=== PATIENT | female | born 1970 | race American Indian/Alaskan Native ===

== ENCOUNTER 2017-05-12 17:30 | Emergency (ER) | payer OTHER ==
[2017-05-12] MEDS ORDERED: Sodium Chloride 0.9% 10 ML Syringe FLUSH PRN (17:51)
--- NOTE | 2017-05-12 17:54 | EDM.PDOC ---
ED HPI GENERAL MEDICAL PROBLEM - General Chief Complaint: Back Pain or Injury Stated Complaint: BY AMBULANCE Time Seen by Provider: 05/12/17 17:45 Source of Information: Reports: Patient, EMS, EMS Notes Reviewed, RN, RN Notes Reviewed History Limitations: Reports: No Limitations - History of Present Illness INITIAL COMMENTS - FREE TEXT/NARRATIVE: Pt presents to the ER per [facility] with c/o "kidney stone". Patient states she began having pain on and was seen in the clinic at [facility] and was given "some shots". She states the pain has progressively gotten worse, rating the pain 8/10. Patient states she has had kidney stones in the past, with the last one being about 1 year ago. Patient admits to chills recently but unsure if she had a fever. When the patient points to the pain, she points to the low back, to just above the buttocks. Patient admits to N/V, denies diarrhea. Onset: Gradual Onset Date: 05/10/17 Duration: Getting Worse Location: Reports: Back Quality: Reports: Sharp, Stabbing Severity: Moderate Improves with: Reports: None Worsens with: Reports: None Associated Symptoms: Reports: Fever/Chills, Nausea/Vomiting Lower Back Pain Score (Numeric/FACES): 8 - Related Data Allergies Allergy/AdvReac Type Severity Reaction Status Date / Time No Known Allergies Allergy Verified 05/04/16 17:07 Home Meds: Home Meds . [No Known Home Meds] 05/31/14 [History] Past Medical History - Past Health History Medical/Surgical History: Denies Medical/Surgical History Social & Family History - Family History Family Medical History: Noncontributory - Tobacco Use Smoking Status *Q: Current Every Day Smoker Years of Tobacco use: 10 Packs/Tins Daily: 0.1 Used Tobacco, but Quit: No Second Hand Smoke Exposure: Yes - Alcohol Use Days Per Week of Alcohol Use: 1 Number of Drinks Per Day: 1 Total Drinks Per Week: 1 - Recreational Drug Use Recreational Drug Use: No Drug Use in Last 12 Months: No Recreational Drug Type: Reports: Codiene, Oxycodone, Vicodin ED ROS GENERAL - Review of Systems Review Of Systems: ROS reveals no pertinent complaints other than HPI. ED EXAM, RENAL/ - Physical Exam Exam: See Below Exam Limited By: No Limitations General Appearance: Alert, WD/WN, Moderate Distress Eye Exam: Bilateral Eye: EOMI, Normal Inspection, PERRL Ears: Normal External Exam, Hearing Grossly Normal Nose: Normal Inspection Throat/Mouth: Normal Inspection, Normal Voice, No Airway Compromise Head: Atraumatic, Normocephalic Neck: Normal Inspection, Supple, Non-Tender, Full Range of Motion Respiratory/Chest: No Respiratory Distress, Lungs Clear, Normal Breath Sounds, No Accessory Muscle Use, Chest Non-Tender Cardiovascular: Normal Peripheral Pulses, Regular Rate, Rhythm, No Edema, No Gallop, No JVD, No Murmur, No Rub GI/Abdominal: Normal Bowel Sounds, Soft, Non-Tender, No Organomegaly, No Distention, No Abnormal Bruit, No Mass (Female) Exam: Deferred Rectal (Female) Exam: Deferred Back Exam: Normal Inspection, CVA Tenderness (L), CVA Tenderness (R), Decreased Range of Motion, Vertebral Tenderness Extremities: Normal Inspection, Normal Range of Motion, Non-Tender, No Pedal Edema, Normal Capillary Refill Neurological: Alert, Oriented, CN II-XII Intact, Normal Cognition, Normal Reflexes, No Motor/Sensory Deficits Psychiatric: Anxious, Tearful Skin Exam: Warm, Dry, Intact, Normal Color, No Rash Course - Vital Signs Last Recorded V/S: Last Vital Signs Temp 99.8 F 05/12/17 17:42 Pulse 95 05/12/17 17:42 Resp 18 05/12/17 17:42 BP 154/77 H 05/12/17 17:42 Pulse Ox 99 05/12/17 17:42 - Orders/Labs/Meds Orders: Active Orders 24 hr Category Date Time Status Peripheral IV Care [RC] . DIRECTED Care 05/12/17 17:52 Active CULTURE URINE [RM] Stat Lab 05/12/17 18:44 Ordered Sodium Chloride 0.9% [Normal Saline] 1,000 ml Med 05/12/17 18:16 Active IV .BOLUS Sodium Chloride 0.9% [Saline Flush] Med 05/12/17 17:51 Active 10 ml FLUSH ASDIRECTED PRN Peripheral IV Insertion Adult [OM.PC] Stat Oth 05/12/17 17:51 Ordered Medication Orders Sodium Chloride (Normal Saline) 1,000 mls @ 999 mls/hr IV .BOLUS ONE Stop: 05/12/17 19:16 Last Admin: 05/12/17 18:36 Dose: 999 mls/hr Sodium Chloride (Saline Flush) 10 ml FLUSH ASDIRECTED PRN PRN Reason: Keep Vein Open Last Admin: 05/12/17 18:30 Dose: 10 ml Labs: Laboratory Tests 05/12/17 05/12/17 05/12/17 Range/Units 17:52 17:52 17:52 WBC (5.0-10.0) 10^3/uL RBC (4.2-5.4) 10^6/uL Hgb (12.0-16.0) g/dL Hct (37.0-47.0) % MCV (80-100) fL MCH (27.0-34.0) pg MCHC (33.0-35.0) g/dL Plt Count (150-450) 10^3/uL Neut % (Auto) (42.2-75.2) % Lymph % (Auto) (20.5-50.1) % [place] % (Auto) (2-8) % Eos % (Auto) (1.0-3.0) % Baso % (Auto) (0.0-1.0) % Sodium (135-145) mmol/L Potassium (3.6-5.0) mmol/L Chloride (101-111) mmol/L Carbon Dioxide (21.0-31.0) mmol/L Anion Gap BUN (7-18) mg/dL Creatinine (0.6-1.3) mg/dL Est Cr Clr Drug Dosing mL/min Estimated GFR (MDRD) BUN/Creatinine Ratio Glucose (74-105) mg/dL Lactic Acid (0.5-2.2) mmol/L Calcium (8.4-10.2) mg/dl Total Bilirubin (0.2-1.0) mg/dL AST (10-42) IU/L ALT (10-60) IU/L Alkaline Phosphatase (42-121) IU/L Total Protein (6.7-8.2) g/dl Albumin (3.2-5.5) g/dl Globulin Albumin/Globulin Ratio Urine Color Dark yellow (YELLOW) Urine Appearance Cloudy (CLEAR) Urine pH 6.0 (5.0-9.0) Ur Specific [place] 1.020 (1.005-1.030) Urine Protein 100 H (NEGATIVE) Urine Glucose (UA) Negative (NEGATIVE) Urine Ketones Trace H (NEGATIVE) Urine Occult Blood Trace-intact H (NEGATIVE) Urine Nitrite Positive H (NEGATIVE) Urine Bilirubin Small H (NEGATIVE) Urine Urobilinogen 1.0 (0.2-1.0) mg/dL Ur Leukocyte Esterase Moderate H (NEGATIVE) Urine RBC 5-10 H /HPF Urine WBC 30-40 H (0-5/HPF) /HPF Ur Epithelial Cells Few /HPF Amorphous Sediment Few (0/HPF) /HPF Urine Bacteria Many H (0-FEW/HPF) /HPF Urine Mucus Few H /LPF Urine HCG, Qual Negative Urine Opiates Screen Negative (NEGATIVE) Ur Oxycodone Screen Negative (NEGATIVE) Urine Methadone Screen Negative (NEGATIVE) Ur Barbiturates Screen Negative (NEGATIVE) U Tricyclic Antidepress Negative (NEGATIVE) Ur Phencyclidine Scrn Negative (NEGATIVE) Ur Amphetamine Screen Negative (NEGATIVE) U Methamphetamines Scrn Negative (NEGATIVE) Urine MDMA Screen Negative (NEGATIVE) U Benzodiazepines Scrn Negative (NEGATIVE) Urine Cocaine Screen Negative (NEGATIVE) U Marijuana (THC) Screen Positive H (NEGATIVE) Ethyl Alcohol mg/dL 05/12/17 05/12/17 05/12/17 Range/Units 17:55 17:55 17:55 WBC 15.2 H (5.0-10.0) 10^3/uL RBC 4.49 (4.2-5.4) 10^6/uL Hgb 14.1 (12.0-16.0) g/dL Hct 42.5 (37.0-47.0) % MCV 94.7 (80-100) fL MCH 31.4 (27.0-34.0) pg MCHC 33.2 (33.0-35.0) g/dL Plt Count 311 (150-450) 10^3/uL Neut % (Auto) 79.8 H (42.2-75.2) % Lymph % (Auto) 10.0 L (20.5-50.1) % [place] % (Auto) 9.6 H (2-8) % Eos % (Auto) 0.5 L (1.0-3.0) % Baso % (Auto) 0.1 (0.0-1.0) % Sodium 138 (135-145) mmol/L Potassium 3.8 (3.6-5.0) mmol/L Chloride 105 (101-111) mmol/L Carbon Dioxide 27.0 (21.0-31.0) mmol/L Anion Gap 9.8 BUN 8 (7-18) mg/dL Creatinine 0.6 (0.6-1.3) mg/dL Est Cr Clr Drug Dosing 107.67 mL/min Estimated GFR (MDRD) > 60 BUN/Creatinine Ratio 13.33 Glucose 115 H (74-105) mg/dL Lactic Acid 1.3 (0.5-2.2) mmol/L Calcium 8.5 (8.4-10.2) mg/dl Total Bilirubin 0.8 (0.2-1.0) mg/dL AST 35 (10-42) IU/L ALT 27 (10-60) IU/L Alkaline Phosphatase 69 (42-121) IU/L Total Protein 8.1 (6.7-8.2) g/dl Albumin 3.3 (3.2-5.5) g/dl Globulin 4.8 Albumin/Globulin Ratio 0.69 Urine Color (YELLOW) Urine Appearance (CLEAR) Urine pH (5.0-9.0) Ur Specific [place] (1.005-1.030) Urine Protein (NEGATIVE) Urine Glucose (UA) (NEGATIVE) Urine Ketones (NEGATIVE) Urine Occult Blood (NEGATIVE) Urine Nitrite (NEGATIVE) Urine Bilirubin (NEGATIVE) Urine Urobilinogen (0.2-1.0) mg/dL Ur Leukocyte Esterase (NEGATIVE) Urine RBC /HPF Urine WBC (0-5/HPF) /HPF Ur Epithelial Cells /HPF Amorphous Sediment (0/HPF) /HPF Urine Bacteria (0-FEW/HPF) /HPF Urine Mucus /LPF Urine HCG, Qual Urine Opiates Screen (NEGATIVE) Ur Oxycodone Screen (NEGATIVE) Urine Methadone Screen (NEGATIVE) Ur Barbiturates Screen (NEGATIVE) U Tricyclic Antidepress (NEGATIVE) Ur Phencyclidine Scrn (NEGATIVE) Ur Amphetamine Screen (NEGATIVE) U Methamphetamines Scrn (NEGATIVE) Urine MDMA Screen (NEGATIVE) U Benzodiazepines Scrn (NEGATIVE) Urine Cocaine Screen (NEGATIVE) U Marijuana (THC) Screen (NEGATIVE) Ethyl Alcohol < 5 mg/dL Meds: Medications Generic Name Dose Route Start Last Admin Trade Name Freq PRN Reason Stop Dose Admin Sodium Chloride 1,000 mls @ 999 mls/hr 05/12/17 18:16 05/12/17 18:36 Normal Saline IV 05/12/17 19:16 999 mls/hr .BOLUS ONE Administration Sodium Chloride 10 ml 05/12/17 17:51 05/12/17 18:30 Saline Flush FLUSH 10 ml ASDIRECTED PRN Administration Keep Vein Open Discontinued Medications Generic Name Dose Route Start Last Admin Trade Name Freq PRN Reason Stop Dose Admin Ceftriaxone Sodium 1 gm 05/12/17 18:43 05/12/17 18:50 Rocephin IVPUSH 05/12/17 18:44 1 gm ONETIME ONE Administration Ketorolac Tromethamine 30 mg 05/12/17 18:15 05/12/17 18:37 Toradol IVPUSH 05/12/17 18:16 30 mg ONETIME ONE Administration Departure - Departure Time of Disposition: 19:03 Disposition: Home, Self-Care 01 Condition: Fair Clinical Impression: Pyelonephritis - Discharge Information Instructions: Pyelonephritis, Adult, [id number] Forms: ED Department Discharge Additional Instructions: RX: Macrobid Drink Plenty of fluids Follow up with your primary care facility next week - My Orders Last 24 Hours: My Active Orders 05/12/17 17:51 Sodium Chloride 0.9% [Saline Flush] 10 ml FLUSH ASDIRECTED PRN Peripheral IV Insertion Adult [OM.PC] Stat 05/12/17 17:52 Peripheral IV Care [RC] . DIRECTED 05/12/17 18:16 Sodium Chloride 0.9% [Normal Saline] 1,000 ml IV .BOLUS 05/12/17 18:44 CULTURE URINE [RM] Stat - Assessment/Plan Last 24 Hours: My Active Orders 05/12/17 17:51 Sodium Chloride 0.9% [Saline Flush] 10 ml FLUSH ASDIRECTED PRN Peripheral IV Insertion Adult [OM.PC] Stat 05/12/17 17:52 Peripheral IV Care [RC] . DIRECTED 05/12/17 18:16 Sodium Chloride 0.9% [Normal Saline] 1,000 ml IV .BOLUS 05/12/17 18:44 CULTURE URINE [RM] Stat
[2017-05-12] MEDS ORDERED: Ketorolac 30 MG/ML SDV IVPUSH ONE (18:15)
[2017-05-12] MEDS ORDERED: Sodium Chloride 0.9% 1,000 ML IV ONE (18:16)
[2017-05-12 18:22] LABS: CHLORIDE,CL 105 mmol/L (101-111); SODIUM,NA 138 mmol/L (135-145)
[2017-05-12] MEDS ORDERED: cefTRIAXone 1 GM Vial IVPUSH ONE (18:43)
[2017-05-12] MEDS ORDERED: Acetaminophen 500 MG Tab PO ONE (19:42)
[2017-05-12 19:54] VITALS: BP 125/44
== END 2017-05-12 20:01 | disposition home or self-care (01) ==
LOC: DL.ED 17:30
DX: N12 Tubulo-interstitial nephritis, not specified as acute or chronic (principal); F17.210 Nicotine dependence, cigarettes, uncomplicated
CPT/HCPCS: 36415; 80053; 80305; 81001; 81025; 83605; 85025; 87086; 96365; 96375; 99283; A9270; G0480; J0696; J1885; J7030; J7050; 87088; 87186

== ENCOUNTER 2017-05-13 13:13 | Emergency (ER) | payer OTHER ==
[2017-05-13] MEDS ORDERED: Sodium Chloride 0.9% 1,000 ML IV ONE ×2 (13:42→14:50)
[2017-05-13] MEDS ORDERED: Ondansetron 4 MG/2 ML SDV IV ONE (13:42)
[2017-05-13] MEDS ORDERED: HYDROmorphone 1 MG/ML Syringe IVPUSH ONE ×2 (13:42→15:14)
[2017-05-13] MEDS ORDERED: Acetaminophen 500 MG Tab PO ONE (13:45)
[2017-05-13] MEDS ORDERED: Iopamidol 612 MG/ML 100 ML Bottle IVPUSH ONE (13:53)
[2017-05-13 14:04] LABS: CHLORIDE,CL 105 mmol/L (101-111); SODIUM,NA 134 mmol/L (135-145)
[2017-05-13] MEDS ORDERED: Piperacillin/Tazobactam 3.375 GM in Sodium Chloride 0.9% 100 ML IV ONE (14:55)
[2017-05-13 15:12] VITALS: BP 104/65
--- NOTE | 2017-05-14 14:04 | EDM.PDOC ---
Scribed by Adia Bob 05/13/17 1426 for Carly Willett NP ED HPI GENERAL MEDICAL PROBLEM - General Chief Complaint: Abdominal Pain Stated Complaint: BY AMBULANCE Time Seen by Provider: 05/13/17 13:40 Source of Information: Reports: Patient, EMS, EMS Notes Reviewed, RN, RN Notes Reviewed History Limitations: Reports: No Limitations - History of Present Illness INITIAL COMMENTS - FREE TEXT/NARRATIVE: Patient presents to ER with complaint of right lower quadrant pain. Patient was seen yesterday in the ER with back/flank pain. Pharmacy is not open until noon today, so patient was unable to get script filled. Patient admits to fever and chills. No nausea, vomiting or diarrhea. Duration: Getting Worse Location: Reports: Abdomen Quality: Reports: Ache Severity: Severe Improves with: Reports: None Worsens with: Reports: None Associated Symptoms: Reports: No Other Symptoms - Related Data Allergies Allergy/AdvReac Type Severity Reaction Status Date / Time No Known Allergies Allergy Verified 05/13/17 13:21 Home Meds: Home Meds . 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: Musculoskeletal History: Reports: Fracture Neurological History: Reports: None Psychiatric History: Reports: None Endocrine/Metabolic History: Reports: None Hematologic History: Reports: None Immunologic History: Reports: None Oncologic (Cancer) History: Reports: None Dermatologic History: Reports: None - Infectious Disease History Infectious Disease History: Reports: None - Past Surgical History Female Surgical History: Reports: Section Social & Family History - Family History Family Medical History: Noncontributory - Tobacco Use Smoking Status *Q: Current Every Day Smoker Years of Tobacco use: 10 Packs/Tins Daily: 0.1 Used Tobacco, but Quit: No Second Hand Smoke Exposure: Yes - Caffeine Use Caffeine Use: Reports: None - Alcohol Use Days Per Week of Alcohol Use: 1 Number of Drinks Per Day: 1 Total Drinks Per Week: 1 - Recreational Drug Use Recreational Drug Use: No Drug Use in Last 12 Months: No Recreational Drug Type: Reports: Codiene, Oxycodone, Vicodin ED ROS GENERAL - Review of Systems Review Of Systems: ROS reveals no pertinent complaints other than HPI. ED EXAM, GI/ABD - Physical Exam Exam: See Below Exam Limited By: No Limitations General Appearance: Alert, WD/WN, No Apparent Distress Eyes: Bilateral: Normal Appearance Ears: Normal External Exam, Normal Canal, Hearing Grossly Normal, Normal TMs Nose: Normal Inspection, Normal Mucosa, No Blood Throat/Mouth: Normal Inspection Head: Atraumatic, Normocephalic Neck: Normal Inspection, Supple, Non-Tender, Full Range of Motion Respiratory/Chest: No Respiratory Distress, Lungs Clear, Normal Breath Sounds, No Accessory Muscle Use, Chest Non-Tender Cardiovascular: Normal Peripheral Pulses, Regular Rate, Rhythm, No Edema, No Gallop, No JVD, No Murmur, No Rub GI/Abdominal Exam: Soft, Tender (Female) Exam: Deferred Rectal (Female) Exam: Deferred Back Exam: Normal Inspection Extremities: Normal Inspection, Normal Range of Motion, Non-Tender, Normal Capillary Refill, No Pedal Edema Neurological: Alert, Oriented, CN II-XII Intact, Normal Cognition, Normal Gait, Normal Reflexes, No Motor/Sensory Deficits Psychiatric: Normal Affect, Normal Mood Skin Exam: Other (hot) Lymphatic: No Adenopathy Course - Vital Signs Last Recorded V/S: Last Vital Signs Temp 99 F 05/13/17 15:11 Pulse 111 H 05/13/17 15:11 Resp 16 05/13/17 15:11 BP 104/65 05/13/17 15:11 Pulse Ox 98 05/13/17 15:11 - Orders/Labs/Meds Orders: Active Orders 24 hr Category Date Time Status CULTURE BLOOD [BC] Stat Lab 05/13/17 14:17 Received CULTURE BLOOD [BC] Stat Lab 05/13/17 14:17 Received Blood Culture x2 Reflex Set [OM.PC] Stat Oth 05/13/17 13:53 Ordered Labs: Laboratory Tests 05/13/17 05/13/17 05/13/17 Range/Units 13:35 13:35 13:35 WBC 28.5 H* (5.0-10.0) 10^3/uL RBC 4.29 (4.2-5.4) 10^6/uL Hgb 13.4 (12.0-16.0) g/dL Hct 40.1 (37.0-47.0) % MCV 93.5 (80-100) fL MCH 31.2 (27.0-34.0) pg MCHC 33.4 (33.0-35.0) g/dL Plt Count 323 (150-450) 10^3/uL Neut % (Auto) 84.9 H (42.2-75.2) % Lymph % (Auto) 7.3 L (20.5-50.1) % [place] % (Auto) 7.6 (2-8) % Eos % (Auto) 0.1 L (1.0-3.0) % Baso % (Auto) 0.1 (0.0-1.0) % ESR (0-20) mm/hr Sodium 134 L (135-145) mmol/L Potassium 3.5 L (3.6-5.0) mmol/L Chloride 105 (101-111) mmol/L Carbon Dioxide 20.0 L (21.0-31.0) mmol/L Anion Gap 12.5 BUN 7 (7-18) mg/dL Creatinine 0.5 L (0.6-1.3) mg/dL Est Cr Clr Drug Dosing 129.20 mL/min Estimated GFR (MDRD) > 60 BUN/Creatinine Ratio 14.00 Glucose 114 H (74-105) mg/dL Lactic Acid (0.5-2.2) mmol/L Calcium 8.4 (8.4-10.2) mg/dl Total Bilirubin 1.0 (0.2-1.0) mg/dL AST 32 (10-42) IU/L ALT 24 (10-60) IU/L Alkaline Phosphatase 67 (42-121) IU/L C-Reactive Protein (0.0-1.3) mg/dL Total Protein 7.5 (6.7-8.2) g/dl Albumin 2.9 L (3.2-5.5) g/dl Globulin 4.6 Albumin/Globulin Ratio 0.63 Amylase (28-100) U/L Lipase (22-51) U/L Ethyl Alcohol < 5 mg/dL 05/13/17 05/13/17 05/13/17 Range/Units 13:35 13:35 13:35 WBC (5.0-10.0) 10^3/uL RBC (4.2-5.4) 10^6/uL Hgb (12.0-16.0) g/dL Hct (37.0-47.0) % MCV (80-100) fL MCH (27.0-34.0) pg MCHC (33.0-35.0) g/dL Plt Count (150-450) 10^3/uL Neut % (Auto) (42.2-75.2) % Lymph % (Auto) (20.5-50.1) % [place] % (Auto) (2-8) % Eos % (Auto) (1.0-3.0) % Baso % (Auto) (0.0-1.0) % ESR 33 H (0-20) mm/hr Sodium (135-145) mmol/L Potassium (3.6-5.0) mmol/L Chloride (101-111) mmol/L Carbon Dioxide (21.0-31.0) mmol/L Anion Gap BUN (7-18) mg/dL Creatinine (0.6-1.3) mg/dL Est Cr Clr Drug Dosing mL/min Estimated GFR (MDRD) BUN/Creatinine Ratio Glucose (74-105) mg/dL Lactic Acid (0.5-2.2) mmol/L Calcium (8.4-10.2) mg/dl Total Bilirubin (0.2-1.0) mg/dL AST (10-42) IU/L ALT (10-60) IU/L Alkaline Phosphatase (42-121) IU/L C-Reactive Protein 9.9 H (0.0-1.3) mg/dL Total Protein (6.7-8.2) g/dl Albumin (3.2-5.5) g/dl Globulin Albumin/Globulin Ratio Amylase 40 (28-100) U/L Lipase 14 L (22-51) U/L Ethyl Alcohol mg/dL 05/13/17 Range/Units 14:17 WBC (5.0-10.0) 10^3/uL RBC (4.2-5.4) 10^6/uL Hgb (12.0-16.0) g/dL Hct (37.0-47.0) % MCV (80-100) fL MCH (27.0-34.0) pg MCHC (33.0-35.0) g/dL Plt Count (150-450) 10^3/uL Neut % (Auto) (42.2-75.2) % Lymph % (Auto) (20.5-50.1) % [place] % (Auto) (2-8) % Eos % (Auto) (1.0-3.0) % Baso % (Auto) (0.0-1.0) % ESR (0-20) mm/hr Sodium (135-145) mmol/L Potassium (3.6-5.0) mmol/L Chloride (101-111) mmol/L Carbon Dioxide (21.0-31.0) mmol/L Anion Gap BUN (7-18) mg/dL Creatinine (0.6-1.3) mg/dL Est Cr Clr Drug Dosing mL/min Estimated GFR (MDRD) BUN/Creatinine Ratio Glucose (74-105) mg/dL Lactic Acid 2.4 H (0.5-2.2) mmol/L Calcium (8.4-10.2) mg/dl Total Bilirubin (0.2-1.0) mg/dL AST (10-42) IU/L ALT (10-60) IU/L Alkaline Phosphatase (42-121) IU/L C-Reactive Protein (0.0-1.3) mg/dL Total Protein (6.7-8.2) g/dl Albumin (3.2-5.5) g/dl Globulin Albumin/Globulin Ratio Amylase (28-100) U/L Lipase (22-51) U/L Ethyl Alcohol mg/dL Meds: Medications Discontinued Medications Generic Name Dose Route Start Last Admin Trade Name Wanda PRN Reason Stop Dose Admin Acetaminophen 1,000 mg 05/13/17 13:45 05/13/17 13:56 Tylenol Extra Strength PO 05/13/17 13:46 1,000 mg ONETIME ONE Administration Hydromorphone HCl 1 mg 05/13/17 13:42 05/13/17 13:57 Dilaudid IVPUSH 05/13/17 13:43 1 mg ONETIME ONE Administration Hydromorphone HCl 1 mg 05/13/17 15:14 05/13/17 15:22 Dilaudid IVPUSH 05/13/17 15:15 1 mg ONETIME ONE Administration Sodium Chloride 1,000 mls @ 999 mls/hr 05/13/17 13:42 05/13/17 13:57 Normal Saline IV 05/13/17 14:42 999 mls/hr .BOLUS ONE Administration Sodium Chloride 1,000 mls @ 999 mls/hr 05/13/17 14:50 05/13/17 15:40 Normal Saline IV 05/13/17 15:50 999 mls/hr .BOLUS ONE Administration Piperacillin Sod/Tazobactam 100 mls @ 200 mls/hr 05/13/17 14:55 05/13/17 15: 10 Sod 3.375 gm/ Sodium Chloride IV 05/13/17 15:24 200 mls/hr ONETIME ONE Administration Iopamidol 100 ml 05/13/17 13:53 05/13/17 14:24 Isovue-300 (61%) IVPUSH 05/13/17 13:54 100 ml ONETIME ONE Administration Ondansetron HCl 4 mg 05/13/17 13:42 05/13/17 13:56 Zofran IV 05/13/17 13:43 4 mg ONETIME ONE Administration - Radiology Interpretation Free Text/Narrative:: CT abdomen and pelvis: Numerous gallstones are present without evidence of gallbladder wall thickening or pericholecystic fluid. There is perirenal fatty stranding of both kidneys, right greater than left. Wedge-shaped areas of diminished attenuation are seen in bilateral renal cortex suggesting possible nephronia. See rad report. - Re-Assessments/Exams Free Text/Narrative Re-Assessment/Exam: 05/13/[address] Arauz from Rad called to report an urgent finding on the CT abdomen/ Pelvis for the patient. Dr. Arauz states a possible bilateral nephronia or Renal abscess. Report relayed to Dr. Robins Departure - Departure Time of Disposition: 15:07 Disposition: Home, Self-Care 01 Condition: Fair, Serious Clinical Impression: Pyelonephritis, Renal abscess - Discharge Information Forms: ED Department Discharge, Interfacility Transfer EMTALA - My Orders Last 24 Hours: My Active Orders 05/13/17 13:53 Blood Culture x2 Reflex Set [OM.PC] Stat 05/13/17 14:17 CULTURE BLOOD [BC] Stat CULTURE BLOOD [BC] Stat - Assessment/Plan Last 24 Hours: My Active Orders 05/13/17 13:53 Blood Culture x2 Reflex Set [OM.PC] Stat 05/13/17 14:17 CULTURE BLOOD [BC] Stat CULTURE BLOOD [BC] Stat I have read and agree with the documentation that has been completed regarding this visit. By signing this record, I attest that the documentation was completed in my physical presence and is an accurate record of the encounter.
== END 2017-05-13 15:52 | disposition home or self-care (01) ==
LOC: DL.ED 13:13
DX: N12 Tubulo-interstitial nephritis, not specified as acute or chronic (principal); N15.1 Renal and perinephric abscess; F17.210 Nicotine dependence, cigarettes, uncomplicated; Z87.442 Personal history of urinary calculi
CPT/HCPCS: 36415; 74177; 80053; 82150; 83605; 83690; 85025; 85651; 86140; 87040; 96361; 96365; 96375; 96376; 99285; A9270; G0480; J1170; J2405; J2543; J7030; J7050; Q9967; 99284

== ENCOUNTER 2017-12-12 04:08 | Emergency (ER) | payer MEDICAID, OTHER ==
[2017-12-12] MEDS ORDERED: Ondansetron 4 MG/2 ML SDV IV ONE ×2 (04:38→08:48)
[2017-12-12] MEDS ORDERED: fentaNYL 100 MCG/2 ML SDV IVPUSH ONE ×2 (04:47→06:32)
[2017-12-12] MEDS ORDERED: Sodium Chloride 0.9% 1,000 ML IV ONE (04:48)
--- NOTE | 2017-12-12 04:50 | EDM.PDOC ---
<Floresita Mendoza - Last Filed: 12/12/17 07:14> ED HPI GENERAL MEDICAL PROBLEM - General Chief Complaint: Abdominal Pain Stated Complaint: IN BY AMBULANCE Time Seen by Provider: 12/12/17 04:30 Source of Information: Reports: Patient History Limitations: Reports: No Limitations - History of Present Illness INITIAL COMMENTS - FREE TEXT/NARRATIVE: C/O epigastric and RUQ pain starting around 430today. Vomited x 4 2 loose diarrhea stools. Chills, no Known fever. Unable to keep anything down tonight. Lower Abdominal Pain Score (Numeric/FACES): 9 - Related Data Allergies Allergy/AdvReac Type Severity Reaction Status Date / Time No Known Allergies Allergy Verified 12/12/17 04:26 Home Meds: Home Meds . 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 [employer] History: Reports: Musculoskeletal History: Reports: Fracture Neurological History: Reports: None Psychiatric History: Reports: None Endocrine/Metabolic History: Reports: None Hematologic History: Reports: None Immunologic History: Reports: None Oncologic (Cancer) History: Reports: None Dermatologic History: Reports: None - Infectious Disease History Infectious Disease History: Reports: None - Past Surgical History Female Surgical History: Reports: Section Social & Family History - Family History Family Medical History: Noncontributory - Tobacco Use Smoking Status *Q: Light Tobacco Smoker Years of Tobacco use: 20 Packs/Tins Daily: 0.1 - Caffeine Use Caffeine Use: Reports: None - Recreational Drug Use Recreational Drug Use: No ED ROS GENERAL - Review of Systems Review Of Systems: See Below Constitutional: Reports: Chills HEENT: Reports: No Symptoms Respiratory: Reports: No Symptoms Cardiovascular: Reports: No Symptoms GI/Abdominal: Reports: Abdominal Pain, Nausea, Vomiting. Denies: Decreased Appetite : Reports: No Symptoms Musculoskeletal: Reports: No Symptoms, Neck Pain Skin: Reports: No Symptoms Neurological: Reports: No Symptoms Course - Vital Signs Last Recorded V/S: Last Vital Signs Temp 36.3 C 12/12/17 08:58 Pulse 59 L 12/12/17 08:58 Resp 16 12/12/17 08:58 BP 132/71 12/12/17 08:58 Pulse Ox 99 12/12/17 08:58 - Orders/Labs/Meds Orders: Active Orders 24 hr Category Date Time Status CULTURE URINE [RM] Stat Lab 12/12/17 Ordered Labs: Laboratory Tests 12/12/17 12/12/17 12/12/17 Range/Units 04:36 04:36 04:36 WBC 8.4 (5.0-10.0) 10^3/uL RBC 4.15 L (4.2-5.4) 10^6/uL Hgb 12.8 (12.0-16.0) g/dL Hct 39.8 (37.0-47.0) % MCV 95.9 (80-100) fL MCH 30.8 (27.0-34.0) pg MCHC 32.2 L (33.0-35.0) g/dL Plt Count 341 (150-450) 10^3/uL Neut % (Auto) 68.4 (42.2-75.2) % Lymph % (Auto) 21.7 (20.5-50.1) % [place] % (Auto) 8.6 H (2-8) % Eos % (Auto) 1.2 (1.0-3.0) % Baso % (Auto) 0.1 (0.0-1.0) % Sodium 136 (135-145) mmol/L Potassium 3.6 (3.6-5.0) mmol/L Chloride 104 (101-111) mmol/L Carbon Dioxide 25.0 (21.0-31.0) mmol/L Anion Gap 10.6 BUN 13 (7-18) mg/dL Creatinine 0.5 L (0.6-1.3) mg/dL Est Cr Clr Drug Dosing 122.69 mL/min Estimated GFR (MDRD) > 60 BUN/Creatinine Ratio 26.00 Glucose 123 H (74-105) mg/dL Calcium 8.4 (8.4-10.2) mg/dl Total Bilirubin 0.5 (0.2-1.0) mg/dL AST 49 H (10-42) IU/L ALT 30 (10-60) IU/L Alkaline Phosphatase 79 (42-121) IU/L C-Reactive Protein < 0.5 (0.0-1.3) mg/dL Total Protein 7.9 (6.7-8.2) g/dl Albumin 3.3 (3.2-5.5) g/dl Globulin 4.6 Albumin/Globulin Ratio 0.72 Amylase 61 (28-100) U/L Lipase 26 (22-51) U/L HCG, Qual Urine Color (YELLOW) Urine Appearance (CLEAR) Urine pH (5.0-9.0) Ur Specific [place] (1.005-1.030) Urine Protein (NEGATIVE) Urine Glucose (UA) (NEGATIVE) Urine Ketones (NEGATIVE) Urine Occult Blood (NEGATIVE) Urine Nitrite (NEGATIVE) Urine Bilirubin (NEGATIVE) Urine Urobilinogen (0.2-1.0) mg/dL Ur Leukocyte Esterase (NEGATIVE) Urine RBC /HPF Urine WBC (0-5/HPF) /HPF Ur Epithelial Cells /HPF Urine Bacteria (0-FEW/HPF) /HPF Urinalysis Comment 12/12/17 12/12/17 Range/Units 04:49 05:58 WBC (5.0-10.0) 10^3/uL RBC (4.2-5.4) 10^6/uL Hgb (12.0-16.0) g/dL Hct (37.0-47.0) % MCV (80-100) fL MCH (27.0-34.0) pg MCHC (33.0-35.0) g/dL Plt Count (150-450) 10^3/uL Neut % (Auto) (42.2-75.2) % Lymph % (Auto) (20.5-50.1) % [place] % (Auto) (2-8) % Eos % (Auto) (1.0-3.0) % Baso % (Auto) (0.0-1.0) % Sodium (135-145) mmol/L Potassium (3.6-5.0) mmol/L Chloride (101-111) mmol/L Carbon Dioxide (21.0-31.0) mmol/L Anion Gap BUN (7-18) mg/dL Creatinine (0.6-1.3) mg/dL Est Cr Clr Drug Dosing mL/min Estimated GFR (MDRD) BUN/Creatinine Ratio Glucose (74-105) mg/dL Calcium (8.4-10.2) mg/dl Total Bilirubin (0.2-1.0) mg/dL AST (10-42) IU/L ALT (10-60) IU/L Alkaline Phosphatase (42-121) IU/L C-Reactive Protein (0.0-1.3) mg/dL Total Protein (6.7-8.2) g/dl Albumin (3.2-5.5) g/dl Globulin Albumin/Globulin Ratio Amylase (28-100) U/L Lipase (22-51) U/L HCG, Qual Negative Urine Color Yellow (YELLOW) Urine Appearance Cloudy (CLEAR) Urine pH 7.5 (5.0-9.0) Ur Specific [place] 1.020 (1.005-1.030) Urine Protein Negative (NEGATIVE) Urine Glucose (UA) Negative (NEGATIVE) Urine Ketones 40 H (NEGATIVE) Urine Occult Blood Negative (NEGATIVE) Urine Nitrite Positive H (NEGATIVE) Urine Bilirubin Negative (NEGATIVE) Urine Urobilinogen 0.2 (0.2-1.0) mg/dL Ur Leukocyte Esterase Negative (NEGATIVE) Urine RBC 0-5 /HPF Urine WBC 0-5 (0-5/HPF) /HPF Ur Epithelial Cells Moderate H /HPF Urine Bacteria Many H (0-FEW/HPF) /HPF Urinalysis Comment Meds: Medications Discontinued Medications Generic Name Dose Route Start Last Admin Trade Name Freq PRN Reason Stop Dose Admin Famotidine 20 mg 12/12/17 06:22 12/12/17 06:39 Pepcid IVPUSH 12/12/17 06:23 20 mg ONETIME ONE Administration Fentanyl 50 mcg 12/12/17 04:47 12/12/17 04:53 Sublimaze IVPUSH 12/12/17 04:48 50 mcg ONETIME ONE Administration Fentanyl 50 mcg 12/12/17 06:32 12/12/17 06:40 Sublimaze IVPUSH 12/12/17 06:33 50 mcg ONETIME ONE Administration Hydromorphone HCl 0.5 mg 12/12/17 08:48 12/12/17 08:55 Dilaudid IVPUSH 12/12/17 08:49 0.5 mg ONETIME ONE Administration Sodium Chloride 1,000 mls @ 999 mls/hr 12/12/17 04:48 12/12/17 04:51 Normal Saline IV 12/12/17 05:48 999 mls/hr .BOLUS ONE Administration Iopamidol 100 ml 12/12/17 06:33 Isovue-300 (61%) IVPUSH 12/12/17 06:34 ONETIME ONE Ondansetron HCl 4 mg 12/12/17 04:38 12/12/17 04:44 Zofran IV 12/12/17 04:39 4 mg ONETIME ONE Administration Ondansetron HCl 4 mg 12/12/17 08:48 12/12/17 08:56 Zofran IV 12/12/17 08:49 4 mg ONETIME ONE Administration Departure - Departure Disposition: DC/Tfer to [facility] 02 Clinical Impression: Cholelithiasis and acute cholecystitis with obstruction UTI (urinary tract infection) Qualifiers: Urinary tract infection type: site unspecified Hematuria presence: without hematuria Qualified Code(s): N39.0 - Urinary tract infection, site not specified - Discharge Information *PRESCRIPTION DRUG MONITORING PROGRAM REVIEWED*: Not Applicable Forms: Interfacility Transfer EMTALA Care Plan Goals: Discussed the examination, history, lab and CT results with [facility] in [place]. Critical access hospital contacted Dr. Peraza (Surgery) who accepted the patient for continued evaluation and treatment. The patient will be transported by [facility]. <Kirill Almazan - Last Filed: 12/12/17 09:04> ED EXAM, GI/ABD - Physical Exam Exam: See Below Exam Limited By: No Limitations General Appearance: Alert, WD/WN, Moderate Distress Eyes: Bilateral: Normal Appearance, EOMI Ears: Normal External Exam, Normal Canal, Hearing Grossly Normal, Normal TMs Nose: Normal Inspection, Normal Mucosa, No Blood Throat/Mouth: Normal Inspection, Normal Lips, Normal Teeth, Normal Gums, Normal Oropharynx, Normal Voice, No Airway Compromise Head: Atraumatic, Normocephalic Neck: Normal Inspection, Supple, Non-Tender, Full Range of Motion Respiratory/Chest: No Respiratory Distress, Lungs Clear, Normal Breath Sounds, No Accessory Muscle Use, Chest Non-Tender Cardiovascular: Normal Peripheral Pulses, Regular Rate, Rhythm, No Edema, No Gallop, No JVD, No Murmur, No Rub GI/Abdominal Exam: Guarding, Tender (RUQ), Other (obese) (Female) Exam: Deferred Rectal (Female) Exam: Deferred Back Exam: Normal Inspection, Full Range of Motion, NT Extremities: Normal Inspection, Normal Range of Motion, Non-Tender, Normal Capillary Refill, No Pedal Edema Neurological: Alert, Oriented, CN II-XII Intact, Normal Cognition, Normal Gait, Normal Reflexes, No Motor/Sensory Deficits Psychiatric: Normal Affect, Normal Mood Skin Exam: Warm, Dry, Intact, Normal Color, No Rash Lymphatic: No Adenopathy Departure - Departure Time of Disposition: 09:01 Condition: Fair - Discharge Information *PRESCRIPTION DRUG MONITORING PROGRAM REVIEWED*: Not Applicable *COPY OF PRESCRIPTION DRUG MONITORING REPORT IN PATIENT RICH: Not Applicable
[2017-12-12 05:24] LABS: ANION GAP 10.6; CHLORIDE,CL 104 mmol/L (101-111); SODIUM,NA 136 mmol/L (135-145)
[2017-12-12] MEDS ORDERED: Famotidine 20 MG/2 ML SDV IVPUSH ONE (06:22)
[2017-12-12] MEDS ORDERED: Iopamidol 612 MG/ML 100 ML Bottle IVPUSH ONE (06:33)
--- NOTE | 2017-12-12 08:37 | CT ---
Clinical history: 47-year-old obese female smoker with right-sided RUQ abdominal pain, nausea, vomiti ng but normal WBC who was reported on [address] exam for right lower quadrant pain to have "numerous gallstones, perirenal stranding both kidneys, and possible nephronia". Reevaluate please Scan technique: Volume acquisition of data from the abdomen and pelvis obtained without oral contrast but during/after intravenous administration 100 cc nonionic Isovue contrast (3 cc/s via injector) wh ile lying supine on the Siemens multi slice CT scanner [facility]. All data archived in the PACS system for storage, reformatting axial/sagittal/coronal planes and [place] dy. Interpretation: Abnormal. 1. Multiple small discretely calcified intraluminal gallstones, one of which appears to be a "lodged" in the cystic duct of the distended gallbladder RUQ. Uniformly thin gallbladder wall and no pericyst ic fluid. 2. Normal hepatic size anatomic configuration and homogeneous density. No abnormal dilatation intra/e xtrahepatic biliary ducts. 3. Irregularity cortex both kidneys which appear to be normal size anatomic configuration. No sign of discrete renal cortical mass lesion, nephrolithiasis or obstructive uropathy. Midline urinary bladde r unremarkable and normal uterus. 4. Multilevel disc disease around the thoracolumbar juncture and involving L5-S1 level (associated hy pertrophic spondylosis). Normal caliber aortoiliac vessels. Cardiac silhouette unremarkable. Lung bas es clear. 5. Stomach, spleen, pancreas and adrenal glands anatomically correct. 7. No diverticulosis, obstipation, inflammatory "dirty" peritoneal fat, abdominal mass, retroperitone al lymphadenopathy, signs of mechanical bowel obstruction, ascites or free intraperitoneal air. CONCLUSION: Diseased gallbladder. Abnormalities spine.
[2017-12-12] MEDS ORDERED: HYDROmorphone 0.5 MG/0.5 ML Syringe IVPUSH ONE (08:48)
[2017-12-12 09:00] VITALS: BP 132/71
== END 2017-12-12 09:34 ==
LOC: DL.ED 04:08
DX: K80.01 Calculus of gallbladder with acute cholecystitis with obstruction (principal); N39.0 Urinary tract infection, site not specified; F17.210 Nicotine dependence, cigarettes, uncomplicated
CPT/HCPCS: 36415; 74177; 80053; 81001; 82150; 83690; 84703; 85025; 86140; 87086; 96361; 96374; 96375; 96376; 99285; J1170; J2405; J3010; J3490; J7030; Q9967; 87088; 87186

== ENCOUNTER 2022-04-10 19:16 | Emergency (ER) | payer MEDICAID ==
[2022-04-10] MEDS ORDERED: Ondansetron 4 MG Tab.DIS PO ONE (19:17)
[2022-04-10] MEDS ORDERED: Ondansetron 4 MG/2 ML SDV IVPUSH ONE (19:39)
[2022-04-10 19:50] LABS: AMPHETAMINES,URINE NEGATIVE (NEGATIVE); BARBITURATES,URINE NEGATIVE (NEGATIVE); BENZODIAZEPINE,URINE NEGATIVE (NEGATIVE); MDMA (ECSTASY), URINE NEGATIVE (NEGATIVE); METHADONE,URINE NEGATIVE (NEGATIVE); METHAMPHETAMINES,URINE POSITIVE (NEGATIVE); OPIATES,URINE NEGATIVE (NEGATIVE); OXYCODONE,URINE NEGATIVE (NEGATIVE); PHENCYCLIDINE,URINE NEGATIVE (NEGATIVE); TCA,URINE NEGATIVE (NEGATIVE)
[2022-04-10] MEDS ORDERED: Sodium Chloride 0.9% 10 ML Syringe FLUSH SCH (20:00)
[2022-04-10 20:10] LABS: ANION GAP 9.7 mEq/L (7-13); CHLORIDE,CL 110 mmol/L (98-107); SODIUM,NA 139 mmol/L (136-145)
[2022-04-10 20:11] LABS: ESTIMATED GFR 108 mL/min (>=60)
[2022-04-10 20:25] LABS: CORONAVIRUS COVID-19 NAA NEGATIVE (NEGATIVE); RESPIRATORY SYNCYTIAL VIR NAA NEGATIVE (NEGATIVE)
[2022-04-10] MEDS ORDERED: Iopamidol 612 MG/ML 100 ML Bottle IVPUSH ONE (20:35)
[2022-04-10 22:32] VITALS: BP 117/61; PULSE 102
[2022-04-10] MEDS ORDERED: Ondansetron 4 MG Tab.DIS ONE (22:41)
== END 2022-04-10 22:51 | disposition home or self-care (01) ==
LOC: DL.ED 19:16
DX: K72.90 Hepatic failure, unspecified without coma (principal); R18.8 Other ascites; R74.01 Elevation of levels of liver transaminase levels; M87.052 Idiopathic aseptic necrosis of left femur; R91.8 Other nonspecific abnormal finding of lung field; R19.7 Diarrhea, unspecified; B34.9 Viral infection, unspecified; Z90.49 Acquired absence of other specified parts of digestive tract; Z20.822 Contact with and (suspected) exposure to COVID-19
CPT/HCPCS: 0241U; 36415; 74177; 80053; 80305; 80307; 81003; 82150; 83605; 83690; 83735; 84703; 85025; 86140; 96374; 99284; A9270; J2405; J3490; Q9967

== ENCOUNTER 2022-11-10 21:12 | Emergency (ER) | payer MEDICAID ==
[2022-11-10] MEDS ORDERED: diphenhydrAMINE 50 MG/ML SDV IVPUSH ONE (21:15)
[2022-11-10] MEDS ORDERED: HYDROmorphone 0.5 MG/0.5 ML Syringe IVPUSH ONE (21:22)
[2022-11-10] MEDS ORDERED: Ondansetron 4 MG/2 ML SDV IVPUSH ONE (21:22)
[2022-11-10 21:30] LABS: BASOPHILS PERCENT AUTO 0.3 % (0.0-1.0); EOSINOPHILS PERCENT AUTO 1.2 % (1.0-3.0); HEMATOCRIT 31.1 % (37.0-47.0); HEMOGLOBIN 10.8 g/dL (12.0-16.0); LYMPHOCYTES PERCENT AUTO 24.3 % (20.5-50.1); MEAN CORPUSCULAR HEMOGLOBIN 36.1 pg (27.0-34.0); MEAN CORPUSCULAR HGB CONC 34.7 g/dL (33.0-35.0); MONOCYTES PERCENT AUTO 10.1 % (2-8); NEUTROPHILS PERCENT AUTO 64.1 % (42.2-75.2); PLATELET COUNT,PLT 140 10^3/uL (150-450); RED BLOOD CELL COUNT 2.99 10^6/uL (4.2-5.4); WHITE BLOOD CELL COUNT,WBC 6.5 10^3/uL (5.0-10.0)
[2022-11-10 21:44] VITALS: BP 106/86; PULSE 100
[2022-11-10 21:54] LABS: LACTIC ACID 1.9 mmol/L (0.4-2.0)
[2022-11-10 21:59] LABS: INR 1.2 (0.9-1.2); PROTHROMBIN TIME 12.1 SEC (9.0-12.0)
[2022-11-10 22:01] LABS: ALANINE AMINOTRANSFERASE,ALT 92 U/L (14-59); ALBUMIN 2.2 g/dL (3.4-5.0); ALKALINE PHOSPHATASE 195 U/L (46-116); AMYLASE 51 U/L (25-115); ANION GAP 13.7 mEq/L (7-13); ASPARTATE AMNIOTRANSFERASE,AST 136 U/L (15-37); BILIRUBIN TOTAL 1.1 mg/dL (0.2-1.0); BLOOD UREA NITROGEN,BUN 12 mg/dL (7-18); BUN/CREATININE RATIO 18.2 (No establ ref range); CALCIUM 7.9 mg/dL (8.5-10.1); CARBON DIOXIDE,CO2 21 mmol/L (21-32); CHLORIDE,CL 110 mmol/L (98-107); CREATININE 0.66 mg/dL (0.55-1.02); EST CRCL DRUG DOSING (CG) 91.76 mL/min; ETHANOL BLOOD MEDICAL 112 mg/dL (0); GLUCOSE RANDOM 102 mg/dL (70-99); LIPASE 130 U/L (73-393); POTASSIUM,K 3.7 mmol/L (3.5-5.1); PROTEIN TOTAL,TP 6.9 g/dL (6.4-8.2); SODIUM,NA 141 mmol/L (136-145)
[2022-11-10 22:09] LABS: A/G RATIO 0.47; C-REACTIVE PROTEIN < 0.2 mg/dL (0.0-0.9); ESTIMATED GFR 107 mL/min (>=60)
[2022-11-10 22:41] LABS: APPEARANCE,URINE CLEAR (CLEAR); BILIRUBIN,URINE NEGATIVE (NEGATIVE); COLOR,URINE YELLOW (YELLOW); GLUCOSE,URINE NEGATIVE (NEGATIVE); KETONES,URINE NEGATIVE (NEGATIVE); LEUKOCYTE ESTERASE,URINE NEGATIVE (NEGATIVE); NITRITE,URINE NEGATIVE (NEGATIVE); OCCULT BLOOD,URINE MODERATE (NEGATIVE); PROTEIN,URINE NEGATIVE (NEGATIVE)
[2022-11-10 22:51] LABS: AMPHETAMINES,URINE NEGATIVE (NEGATIVE); BARBITURATES,URINE NEGATIVE (NEGATIVE); BENZODIAZEPINE,URINE NEGATIVE (NEGATIVE); MDMA (ECSTASY), URINE NEGATIVE (NEGATIVE); METHADONE,URINE NEGATIVE (NEGATIVE); METHAMPHETAMINES,URINE POSITIVE (NEGATIVE); OPIATES,URINE NEGATIVE (NEGATIVE); OXYCODONE,URINE NEGATIVE (NEGATIVE); PHENCYCLIDINE,URINE NEGATIVE (NEGATIVE); TCA,URINE NEGATIVE (NEGATIVE)
[2022-11-10 22:54] LABS: BACTERIA,URINE FEW /HPF (0-FEW/HPF); EPITHELIAL CELLS,URINE MODERATE /HPF (NOT SEEN); MUCUS,URINE MODERATE /LPF (NOT SEEN)
[2022-11-10 22:55] LABS: WBC,URINE 0-5 /HPF (0-5/HPF)
== END 2022-11-10 23:05 | disposition home or self-care (01) ==
LOC: DL.ED 21:12
DX: K72.10 Chronic hepatic failure without coma (principal); Z86.16 Personal history of COVID-19; Z98.890 Other specified postprocedural states
CPT/HCPCS: 36415; 80053; 80305; 80307; 81001; 82140; 82150; 83605; 83690; 85025; 85610; 86140; 96374; 96375; 99284; J1170; J2405

== ENCOUNTER 2023-12-25 17:40 | Emergency (ER) | payer MEDICAID ==
[2023-12-25] MEDS: Albuterol/Ipratropium 3.0-0.5 MG/3 ML Neb Soln NEB ONE (17:05)
[2023-12-25 17:24] VITALS: BP 116/104; PULSE 93
[2023-12-25 17:26] LABS: BASOPHILS PERCENT AUTO 0.4 % (0.0-1.0); EOSINOPHILS PERCENT AUTO 1.8 % (1.0-3.0); HEMATOCRIT 30.3 % (37.0-47.0); HEMOGLOBIN 10.4 g/dL (12.0-16.0); LYMPHOCYTES PERCENT AUTO 35.3 % (20.5-50.1); MEAN CORPUSCULAR HEMOGLOBIN 36.6 pg (27.0-34.0); MEAN CORPUSCULAR HGB CONC 34.3 g/dL (33.0-35.0); MEAN CORPUSCULAR VOLUME 106.7 fL (80-100); MONOCYTES PERCENT AUTO 14.4 % (2-8); NEUTROPHILS PERCENT AUTO 48.1 % (42.2-75.2); PLATELET COUNT,PLT 155 10^3/uL (150-450); RED BLOOD CELL COUNT 2.84 10^6/uL (4.2-5.4); WHITE BLOOD CELL COUNT,WBC 5.7 10^3/uL (5.0-10.0)
[2023-12-25] MEDS: Ketorolac 30 MG/ML SDV IVPUSH ONE (17:35)
[2023-12-25 17:53] LABS: LACTIC ACID 2.3 mmol/L (0.4-2.0)
[2023-12-25 17:59] LABS: A/G RATIO 0.31; ALANINE AMINOTRANSFERASE,ALT 26 U/L (14-59); ALBUMIN 1.6 g/dL (3.4-5.0); ALKALINE PHOSPHATASE 162 U/L (46-116); ANION GAP 12.4 mEq/L (7-13); ASPARTATE AMNIOTRANSFERASE,AST 56 U/L (15-37); BLOOD UREA NITROGEN,BUN 12 mg/dL (7-18); BUN/CREATININE RATIO 12.2 (No establ ref range); CALCIUM 8.1 mg/dL (8.5-10.1); CARBON DIOXIDE,CO2 23 mmol/L (21-32); CHLORIDE,CL 110 mmol/L (98-107); CREATININE 0.98 mg/dL (0.55-1.02); EST CRCL DRUG DOSING (CG) 58.65 mL/min; ESTIMATED GFR 70 mL/min (>=60); ETHANOL BLOOD MEDICAL < 3 mg/dL (0); GLUCOSE RANDOM 90 mg/dL (70-99); POTASSIUM,K 4.4 mmol/L (3.5-5.1); PROTEIN TOTAL,TP 6.7 g/dL (6.4-8.2); SODIUM,NA 141 mmol/L (136-145)
[2023-12-25] MEDS: Azithromycin 250 MG Tab PO ONE (18:16)
[2023-12-25] MEDS: Dexamethasone 4 MG/ML SDV IVPUSH ONE (18:16)
[2023-12-25] MEDS: Take Home: Azithromycin 250 MG, 2 Tab Pack PO ONE (18:30)
[2023-12-25] MEDS: Albuterol 6.7 GM Inhaler INH ONE (18:30)
== END 2023-12-25 18:43 | disposition home or self-care (01) ==
LOC: DL.ED 17:40
DX: J40 Bronchitis, not specified as acute or chronic (principal); Z86.16 Personal history of COVID-19
CPT/HCPCS: 36415; 71046; 80053; 80307; 82140; 83605; 85025; 87040; 96374; 96375; 99285-25; A9270-GY; J1100; J1885; J7620-GY; U0002

== ENCOUNTER 2024-01-29 14:55 | Emergency (ER) | payer MEDICAID ==
[2024-01-29 15:20] LABS: BASOPHILS PERCENT AUTO 0.3 % (0.0-1.0); EOSINOPHILS PERCENT AUTO 5.2 % (1.0-3.0); HEMATOCRIT 30.9 % (37.0-47.0); HEMOGLOBIN 10.3 g/dL (12.0-16.0); LYMPHOCYTES PERCENT AUTO 28.3 % (20.5-50.1); MEAN CORPUSCULAR HEMOGLOBIN 36.3 pg (27.0-34.0); MEAN CORPUSCULAR HGB CONC 33.3 g/dL (33.0-35.0); MEAN CORPUSCULAR VOLUME 108.8 fL (80-100); MONOCYTES PERCENT AUTO 14.7 % (2-8); NEUTROPHILS PERCENT AUTO 51.5 % (42.2-75.2); PLATELET COUNT,PLT 169 10^3/uL (150-450); RED BLOOD CELL COUNT 2.84 10^6/uL (4.2-5.4); WHITE BLOOD CELL COUNT,WBC 6.1 10^3/uL (5.0-10.0)
[2024-01-29 15:23] LABS: APPEARANCE,URINE CLOUDY (CLEAR); BILIRUBIN,URINE SMALL (NEGATIVE); COLOR,URINE AMBER (YELLOW); GLUCOSE,URINE NEGATIVE (NEGATIVE); KETONES,URINE NEGATIVE (NEGATIVE); LEUKOCYTE ESTERASE,URINE NEGATIVE (NEGATIVE); NITRITE,URINE NEGATIVE (NEGATIVE); OCCULT BLOOD,URINE LARGE (NEGATIVE); PROTEIN,URINE >=300 (NEGATIVE)
[2024-01-29 15:29] LABS: AMPHETAMINES,URINE NEGATIVE (NEGATIVE); BARBITURATES,URINE NEGATIVE (NEGATIVE); BENZODIAZEPINE,URINE NEGATIVE (NEGATIVE); MDMA (ECSTASY), URINE NEGATIVE (NEGATIVE); METHADONE,URINE NEGATIVE (NEGATIVE); METHAMPHETAMINES,URINE POSITIVE (NEGATIVE); OPIATES,URINE NEGATIVE (NEGATIVE); OXYCODONE,URINE NEGATIVE (NEGATIVE); PHENCYCLIDINE,URINE NEGATIVE (NEGATIVE); TCA,URINE NEGATIVE (NEGATIVE)
[2024-01-29 15:42] LABS: ALBUMIN 1.3 g/dL (3.4-5.0); ANION GAP 10.6 mEq/L (7-13); BILIRUBIN TOTAL 1.2 mg/dL (0.2-1.0); BUN/CREATININE RATIO 9.3 (No establ ref range); C-REACTIVE PROTEIN 0.66 ng/dL (<=0.50); CALCIUM 8.4 mg/dL (8.5-10.1); CREATININE 1.18 mg/dL (0.55-1.02); EST CRCL DRUG DOSING (CG) 50.75 mL/min; MAGNESIUM 1.5 mg/dL (1.8-2.4); POTASSIUM,K 4.6 mmol/L (3.5-5.1); PROTEIN TOTAL,TP 7.2 g/dL (6.4-8.2)
[2024-01-29 15:48] LABS: A/G RATIO 0.22
[2024-01-29 15:57] LABS: AMORPHOUS SEDIMENT,URINE MODERATE /HPF (NOT SEEN); BACTERIA,URINE MODERATE /HPF (0-FEW/HPF); EPITHELIAL CELLS,URINE MODERATE /HPF (NOT SEEN); MUCUS,URINE MODERATE /LPF (NOT SEEN); RBC,URINE PACKED /HPF (0-5)
[2024-01-29 16:26] VITALS: BP 128/62; PULSE 90
[2024-01-29] MEDS: Albumin Human 25 GM in Premix Bag 1 BAG IV ONE (17:33)
[2024-01-29] MEDS: Magnesium Sulfate/Water Premix 2 GM in Premix Bag 1 BAG IV ONE (18:16)
== END 2024-01-29 18:55 ==
LOC: DL.ED 14:55
DX: N04.9 Nephrotic syndrome with unspecified morphologic changes (principal); Z86.16 Personal history of COVID-19
CPT/HCPCS: 36415; 71046; 74176; 80053; 80305-QW; 81001; 83735; 83880; 85025; 86140; 96374; 99284; 99285-25; J3475; P9047

== ENCOUNTER 2024-03-23 03:49 | Emergency (ER) | payer MEDICAID ==
[2024-03-23] MEDS ORDERED: Sodium Chloride 0.9% 10 ML Syringe FLUSH PRN (04:23)
[2024-03-23 05:06] LABS: BASOPHILS PERCENT AUTO 0.3 % (0.0-1.0); EOSINOPHILS PERCENT AUTO 3.6 % (1.0-3.0); HEMATOCRIT 23.5 % (37.0-47.0); HEMOGLOBIN 8.5 g/dL (12.0-16.0); LYMPHOCYTES PERCENT AUTO 28.3 % (20.5-50.1); MEAN CORPUSCULAR HEMOGLOBIN 40.1 pg (27.0-34.0); MEAN CORPUSCULAR HGB CONC 36.2 g/dL (33.0-35.0); MEAN CORPUSCULAR VOLUME 110.8 fL (80-100); MONOCYTES PERCENT AUTO 15.4 % (2-8); NEUTROPHILS PERCENT AUTO 52.4 % (42.2-75.2); PLATELET COUNT,PLT 169 10^3/uL (150-450); RED BLOOD CELL COUNT 2.12 10^6/uL (4.2-5.4); WHITE BLOOD CELL COUNT,WBC 6.9 10^3/uL (5.0-10.0)
[2024-03-23 05:25] LABS: APPEARANCE,URINE SLIGHTLY CLOUDY (CLEAR); BILIRUBIN,URINE SMALL (NEGATIVE); COLOR,URINE DARK YELLOW (YELLOW); GLUCOSE,URINE NEGATIVE (NEGATIVE); KETONES,URINE NEGATIVE (NEGATIVE); LEUKOCYTE ESTERASE,URINE NEGATIVE (NEGATIVE); NITRITE,URINE NEGATIVE (NEGATIVE); OCCULT BLOOD,URINE LARGE (NEGATIVE); PROTEIN,URINE >=300 (NEGATIVE)
[2024-03-23 05:29] LABS: AMPHETAMINES,URINE NEGATIVE (NEGATIVE); BARBITURATES,URINE NEGATIVE (NEGATIVE); BENZODIAZEPINE,URINE NEGATIVE (NEGATIVE); MDMA (ECSTASY), URINE NEGATIVE (NEGATIVE); METHADONE,URINE NEGATIVE (NEGATIVE); METHAMPHETAMINES,URINE POSITIVE (NEGATIVE); OPIATES,URINE NEGATIVE (NEGATIVE); OXYCODONE,URINE NEGATIVE (NEGATIVE); PHENCYCLIDINE,URINE NEGATIVE (NEGATIVE); TCA,URINE NEGATIVE (NEGATIVE)
[2024-03-23 05:30] LABS: ALANINE AMINOTRANSFERASE,ALT 27 U/L (14-59); ALBUMIN 1.3 g/dL (3.4-5.0); ALKALINE PHOSPHATASE 151 U/L (46-116); ANION GAP 12.4 mEq/L (7-13); ASPARTATE AMNIOTRANSFERASE,AST 45 U/L (15-37); BILIRUBIN TOTAL 1.1 mg/dL (0.2-1.0); BLOOD UREA NITROGEN,BUN 14 mg/dL (7-18); BUN/CREATININE RATIO 13.1 (No establ ref range); CALCIUM 7.6 mg/dL (8.5-10.1); CARBON DIOXIDE,CO2 22 mmol/L (21-32); CHLORIDE,CL 108 mmol/L (98-107); CREATININE 1.07 mg/dL (0.55-1.02); EST CRCL DRUG DOSING (CG) 55.97 mL/min; GLUCOSE RANDOM 94 mg/dL (70-99); MAGNESIUM 1.6 mg/dL (1.8-2.4); POTASSIUM,K 3.4 mmol/L (3.5-5.1); PROTEIN TOTAL,TP 6.8 g/dL (6.4-8.2); SODIUM,NA 139 mmol/L (136-145)
[2024-03-23 05:31] LABS: A/G RATIO 0.24; ESTIMATED GFR 63 mL/min (>=60)
[2024-03-23 05:32] LABS: ETHANOL BLOOD MEDICAL < 3 mg/dL (0)
[2024-03-23 05:34] LABS: AMORPHOUS SEDIMENT,URINE FEW /HPF (NOT SEEN); BACTERIA,URINE MODERATE /HPF (0-FEW/HPF); EPITHELIAL CELLS,URINE FEW /HPF (NOT SEEN); RBC,URINE >100 /HPF (0-5)
[2024-03-23 05:36] LABS: INR 1.2 (0.9-1.2); PROTHROMBIN TIME 11.9 SEC (9.0-12.0); PTT,PARTIAL THROMBOPLSTIN TIME 26.5 SEC (22.0-34.0)
[2024-03-23 07:18] VITALS: BP 142/80; PULSE 103
== END 2024-03-23 07:29 | disposition home or self-care (01) ==
LOC: DL.ED 03:49
DX: K72.10 Chronic hepatic failure without coma (principal); F10.20 Alcohol dependence, uncomplicated; R06.02 Shortness of breath; R79.89 Other specified abnormal findings of blood chemistry; F15.10 Other stimulant abuse, uncomplicated; F12.10 Cannabis abuse, uncomplicated; N18.9 Chronic kidney disease, unspecified
CPT/HCPCS: 36415; 71045; 80053; 80305-QW; 80307; 81001; 83735; 84484; 85025; 85610; 85730; 87081; 87428-QW; 87430; 93005; 99285

== ENCOUNTER 2024-03-24 22:43 | Emergency (ER) | payer MEDICAID ==
[2024-03-24] MEDS: Iopamidol 612 MG/ML 100 ML Bottle IVPUSH ONE (23:26)
[2024-03-24] MEDS: GI Cocktail Oral Solution 30 ML PO ONE (23:28)
[2024-03-24] MEDS: Famotidine 20 MG/2 ML SDV IVPUSH ONE (23:29)
[2024-03-24 23:35] LABS: BASOPHILS PERCENT AUTO 0.1 % (0.0-1.0); EOSINOPHILS PERCENT AUTO 3.5 % (1.0-3.0); HEMATOCRIT 26.2 % (37.0-47.0); HEMOGLOBIN 9.2 g/dL (12.0-16.0); LYMPHOCYTES PERCENT AUTO 25.8 % (20.5-50.1); MEAN CORPUSCULAR HEMOGLOBIN 38.8 pg (27.0-34.0); MEAN CORPUSCULAR HGB CONC 35.1 g/dL (33.0-35.0); MEAN CORPUSCULAR VOLUME 110.5 fL (80-100); MONOCYTES PERCENT AUTO 11.9 % (2-8); NEUTROPHILS PERCENT AUTO 58.7 % (42.2-75.2); PLATELET COUNT,PLT 177 10^3/uL (150-450); RED BLOOD CELL COUNT 2.37 10^6/uL (4.2-5.4); WHITE BLOOD CELL COUNT,WBC 7.5 10^3/uL (5.0-10.0)
[2024-03-25 00:02] LABS: ALANINE AMINOTRANSFERASE,ALT 19 U/L (14-59); ALBUMIN 1.4 g/dL (3.4-5.0); ALKALINE PHOSPHATASE 157 U/L (46-116); ASPARTATE AMNIOTRANSFERASE,AST 53 U/L (15-37); BILIRUBIN TOTAL 1.6 mg/dL (0.2-1.0); BLOOD UREA NITROGEN,BUN 14 mg/dL (7-18); BUN/CREATININE RATIO 11.4 (No establ ref range); CALCIUM 7.9 mg/dL (8.5-10.1); CARBON DIOXIDE,CO2 23 mmol/L (21-32); CHLORIDE,CL 108 mmol/L (98-107); CREATININE 1.23 mg/dL (0.55-1.02); LIPASE 71 U/L (16-77); MAGNESIUM 1.7 mg/dL (1.8-2.4); PROTEIN TOTAL,TP 7.3 g/dL (6.4-8.2); SODIUM,NA 139 mmol/L (136-145)
[2024-03-25 00:05] LABS: INR 1.2 (0.9-1.2); PROTHROMBIN TIME 11.9 SEC (9.0-12.0)
[2024-03-25 00:07] LABS: GLUCOSE RANDOM 95 mg/dL (70-99)
[2024-03-25 00:08] LABS: A/G RATIO 0.24; ESTIMATED GFR 53 mL/min (>=60)
[2024-03-25 00:09] LABS: ETHANOL BLOOD MEDICAL < 3 mg/dL (0)
[2024-03-25] MEDS: Magnesium Sulfate/Water Premix 2 GM in Premix Bag 1 BAG IV ONE (00:23)
[2024-03-25 01:44] LABS: APPEARANCE,URINE CLOUDY (CLEAR); BILIRUBIN,URINE SMALL (NEGATIVE); COLOR,URINE DARK YELLOW (YELLOW); GLUCOSE,URINE NEGATIVE (NEGATIVE); KETONES,URINE NEGATIVE (NEGATIVE); LEUKOCYTE ESTERASE,URINE NEGATIVE (NEGATIVE); NITRITE,URINE NEGATIVE (NEGATIVE); OCCULT BLOOD,URINE LARGE (NEGATIVE); PH,URINE 5.5 (5.0-9.0); PROTEIN,URINE >=300 (NEGATIVE); UROBILINOGEN,URINE 0.2 mg/dL (0.2-1.0)
[2024-03-25 01:46] LABS: AMPHETAMINES,URINE NEGATIVE (NEGATIVE); BARBITURATES,URINE NEGATIVE (NEGATIVE); BENZODIAZEPINE,URINE NEGATIVE (NEGATIVE); MDMA (ECSTASY), URINE NEGATIVE (NEGATIVE); METHADONE,URINE NEGATIVE (NEGATIVE); METHAMPHETAMINES,URINE POSITIVE (NEGATIVE); OPIATES,URINE NEGATIVE (NEGATIVE); OXYCODONE,URINE NEGATIVE (NEGATIVE); PHENCYCLIDINE,URINE NEGATIVE (NEGATIVE); TCA,URINE NEGATIVE (NEGATIVE)
[2024-03-25 02:01] LABS: AMORPHOUS SEDIMENT,URINE MODERATE /HPF (NOT SEEN); BACTERIA,URINE MODERATE /HPF (0-FEW/HPF); EPITHELIAL CELLS,URINE MODERATE /HPF (NOT SEEN); RBC,URINE >100 /HPF (0-5)
[2024-03-25 02:28] VITALS: BP 143/86; PULSE 110
== END 2024-03-25 05:10 | disposition home or self-care (01) ==
LOC: DL.ED 22:43
DX: K70.31 Alcoholic cirrhosis of liver with ascites (principal); K29.20 Alcoholic gastritis without bleeding; F10.10 Alcohol abuse, uncomplicated; N18.9 Chronic kidney disease, unspecified; D63.1 Anemia in chronic kidney disease; E83.42 Hypomagnesemia; F15.10 Other stimulant abuse, uncomplicated; Z86.16 Personal history of COVID-19; Z87.891 Personal history of nicotine dependence
CPT/HCPCS: 36415; 74177; 80053; 80305-QW; 80307; 81001; 83690; 83735; 84484; 85025; 85610; 93005; 93010; 96365; 96366; 96375; 99284-25; 99285; A9270-GY; J3475; Q9967

== ENCOUNTER 2024-03-27 11:56 | Emergency (ER) | payer MEDICAID ==
[2024-03-27] MEDS ORDERED: Sodium Chloride 0.9% 10 ML Syringe FLUSH PRN (12:00)
[2024-03-27 12:23] LABS: BASOPHILS PERCENT AUTO 0.2 % (0.0-1.0); EOSINOPHILS PERCENT AUTO 3.5 % (1.0-3.0); HEMATOCRIT 25.5 % (37.0-47.0); LYMPHOCYTES PERCENT AUTO 28.7 % (20.5-50.1); MEAN CORPUSCULAR HEMOGLOBIN 37.8 pg (27.0-34.0); MEAN CORPUSCULAR HGB CONC 35.3 g/dL (33.0-35.0); MEAN CORPUSCULAR VOLUME 107.1 fL (80-100); MONOCYTES PERCENT AUTO 14.1 % (2-8); NEUTROPHILS PERCENT AUTO 53.5 % (42.2-75.2); PLATELET COUNT,PLT 168 10^3/uL (150-450); RED BLOOD CELL COUNT 2.38 10^6/uL (4.2-5.4); WHITE BLOOD CELL COUNT,WBC 6.2 10^3/uL (5.0-10.0)
[2024-03-27 12:42] LABS: B-TYPE NATRIURETIC PEPTIDE,BNP 23 pg/ml (0-100)
[2024-03-27 12:43] LABS: INR 1.2 (0.9-1.2); PROTHROMBIN TIME 12.2 SEC (9.0-12.0); PTT,PARTIAL THROMBOPLSTIN TIME 27.2 SEC (22.0-34.0)
[2024-03-27 12:49] LABS: ALANINE AMINOTRANSFERASE,ALT 15 U/L (14-59); ALBUMIN 1.3 g/dL (3.4-5.0); ALKALINE PHOSPHATASE 138 U/L (46-116); ASPARTATE AMNIOTRANSFERASE,AST 41 U/L (15-37); BILIRUBIN TOTAL 1.2 mg/dL (0.2-1.0); BLOOD UREA NITROGEN,BUN 18 mg/dL (7-18); CARBON DIOXIDE,CO2 23 mmol/L (21-32); CHLORIDE,CL 108 mmol/L (98-107); CREATININE 1.29 mg/dL (0.55-1.02); GLUCOSE RANDOM 93 mg/dL (70-99); LIPASE 70 U/L (16-77); PROTEIN TOTAL,TP 7.1 g/dL (6.4-8.2); SODIUM,NA 141 mmol/L (136-145)
[2024-03-27 12:50] LABS: A/G RATIO 0.22; ESTIMATED GFR 50 mL/min (>=60); ETHANOL BLOOD MEDICAL < 3 mg/dL (0)
[2024-03-27 13:05] LABS: BARBITURATES,URINE NEGATIVE (NEGATIVE); BENZODIAZEPINE,URINE NEGATIVE (NEGATIVE); MDMA (ECSTASY), URINE NEGATIVE (NEGATIVE); METHADONE,URINE NEGATIVE (NEGATIVE); METHAMPHETAMINES,URINE POSITIVE (NEGATIVE); OPIATES,URINE NEGATIVE (NEGATIVE); OXYCODONE,URINE NEGATIVE (NEGATIVE); PHENCYCLIDINE,URINE NEGATIVE (NEGATIVE); TCA,URINE NEGATIVE (NEGATIVE)
[2024-03-27 13:06] LABS: AMPHETAMINES,URINE NEGATIVE (NEGATIVE)
[2024-03-27] MEDS: cefTRIAXone 2 GM Vial IVPUSH ONE (13:46)
[2024-03-27 14:00] VITALS: PULSE 102
[2024-03-27 14:01] VITALS: BP 131/80
== END 2024-03-27 14:03 ==
LOC: DL.ED 11:56
DX: K70.31 Alcoholic cirrhosis of liver with ascites (principal); D50.9 Iron deficiency anemia, unspecified; R74.8 Abnormal levels of other serum enzymes; R79.89 Other specified abnormal findings of blood chemistry; Z88.5 Allergy status to narcotic agent; Y90.0 Blood alcohol level of less than 20 mg/100 ml
CPT/HCPCS: 36415; 71045; 80053; 80305; 80307; 83690; 83735; 83880; 84484; 85025; 85610; 85730; 87040; 87428; 96374; 99285; J0696

== ENCOUNTER 2024-04-15 15:07 | Inpatient (IN) | payer MEDICAID ==
[2024-04-15] MEDS: Albuterol/Ipratropium 3.0-0.5 MG/3 ML Neb Soln NEB ONE (15:46)
[2024-04-15 15:52] LABS: BASOPHILS PERCENT AUTO 0.5 % (0.0-1.0); EOSINOPHILS PERCENT AUTO 10.3 % (1.0-3.0); HEMATOCRIT 24.1 % (37.0-47.0); HEMOGLOBIN 7.8 g/dL (12.0-16.0); LYMPHOCYTES PERCENT AUTO 29.7 % (20.5-50.1); MEAN CORPUSCULAR HEMOGLOBIN 35.8 pg (27.0-34.0); MEAN CORPUSCULAR HGB CONC 32.4 g/dL (33.0-35.0); MEAN CORPUSCULAR VOLUME 110.6 fL (80-100); MONOCYTES PERCENT AUTO 15.2 % (2-8); NEUTROPHILS PERCENT AUTO 44.3 % (42.2-75.2); PLATELET COUNT,PLT 206 10^3/uL (150-450); RED BLOOD CELL COUNT 2.18 10^6/uL (4.2-5.4); WHITE BLOOD CELL COUNT,WBC 5.9 10^3/uL (5.0-10.0)
[2024-04-15 16:13] LABS: INR 1.2 (0.9-1.2); PROTHROMBIN TIME 12.1 SEC (9.0-12.0); PTT,PARTIAL THROMBOPLSTIN TIME 27.4 SEC (22.0-34.0)
[2024-04-15 16:16] LABS: ALANINE AMINOTRANSFERASE,ALT 21 U/L (14-59); ALBUMIN 1.4 g/dL (3.4-5.0); ALKALINE PHOSPHATASE 129 U/L (46-116); ANION GAP 13.3 mEq/L (7-13); ASPARTATE AMNIOTRANSFERASE,AST 56 U/L (15-37); BILIRUBIN TOTAL 1.3 mg/dL (0.2-1.0); BLOOD UREA NITROGEN,BUN 12 mg/dL (7-18); BUN/CREATININE RATIO 11.7 (No establ ref range); CALCIUM 7.9 mg/dL (8.5-10.1); CARBON DIOXIDE,CO2 24 mmol/L (21-32); CHLORIDE,CL 111 mmol/L (98-107); CREATININE 1.03 mg/dL (0.55-1.02); EST CRCL DRUG DOSING (CG) 58.15 mL/min; LIPASE 54 U/L (16-77); MAGNESIUM 1.7 mg/dL (1.8-2.4); PHOSPHORUS 3.6 mg/dL (2.6-4.7); POTASSIUM,K 4.3 mmol/L (3.5-5.1); PROTEIN TOTAL,TP 6.9 g/dL (6.4-8.2); SODIUM,NA 144 mmol/L (136-145)
[2024-04-15 16:17] LABS: B-TYPE NATRIURETIC PEPTIDE,BNP 71 pg/ml (0-100)
[2024-04-15 16:20] LABS: LACTIC ACID 1.5 mmol/L (0.4-2.0)
[2024-04-15 16:26] LABS: GLUCOSE RANDOM 90 mg/dL (70-99)
[2024-04-15 16:29] LABS: A/G RATIO 0.25; ESTIMATED GFR 66 mL/min (>=60)
[2024-04-15 16:30] LABS: C-REACTIVE PROTEIN < 0.50 ng/dL (<=0.50); ETHANOL BLOOD MEDICAL < 3 mg/dL (0)
[2024-04-15] MEDS: Iopamidol 612 MG/ML 100 ML Bottle IVPUSH ONE (16:49)
[2024-04-15] MEDS: ALBUMIN HUMAN IV SCH (19:51)
[2024-04-15 21:44] LABS: APPEARANCE,URINE TURBID (CLEAR); BILIRUBIN,URINE NEGATIVE (NEGATIVE); COLOR,URINE YELLOW (YELLOW); GLUCOSE,URINE NEGATIVE (NEGATIVE); KETONES,URINE NEGATIVE (NEGATIVE); LEUKOCYTE ESTERASE,URINE NEGATIVE (NEGATIVE); NITRITE,URINE NEGATIVE (NEGATIVE); OCCULT BLOOD,URINE LARGE (NEGATIVE); PROTEIN,URINE >=300 (NEGATIVE)
[2024-04-15 21:47] LABS: METHAMPHETAMINES,URINE POSITIVE (NEGATIVE)
[2024-04-15 21:48] LABS: AMPHETAMINES,URINE NEGATIVE (NEGATIVE); BARBITURATES,URINE NEGATIVE (NEGATIVE); BENZODIAZEPINE,URINE NEGATIVE (NEGATIVE); MDMA (ECSTASY), URINE NEGATIVE (NEGATIVE); METHADONE,URINE NEGATIVE (NEGATIVE); OPIATES,URINE NEGATIVE (NEGATIVE); OXYCODONE,URINE NEGATIVE (NEGATIVE); PHENCYCLIDINE,URINE NEGATIVE (NEGATIVE); TCA,URINE NEGATIVE (NEGATIVE)
[2024-04-15 22:04] LABS: BACTERIA,URINE FEW /HPF (0-FEW/HPF); EPITHELIAL CELLS,URINE FEW /HPF (NOT SEEN); FINE GRANULAR CASTS,URINE RARE /LPF (NOT SEEN); MUCUS,URINE FEW /LPF (NOT SEEN); RBC,URINE SEMI-PACKED /HPF (0-5)
[2024-04-15] MEDS ORDERED: Bisacodyl 5 MG Tab PO PRN (22:47)
[2024-04-15] MEDS ORDERED: Docusate Sodium 100 MG Cap PO PRN (22:47)
[2024-04-15] MEDS: cefTRIAXone 2 GM Vial IVPUSH SCH (23:40)
[2024-04-16 06:35] LABS: HEMATOCRIT 22.1 % (37.0-47.0); HEMOGLOBIN 7.2 g/dL (12.0-16.0); MEAN CORPUSCULAR HGB CONC 32.6 g/dL (33.0-35.0); MEAN CORPUSCULAR VOLUME 110.5 fL (80-100); WHITE BLOOD CELL COUNT,WBC 9.8 10^3/uL (5.0-10.0)
[2024-04-16 06:45] LABS: ANION GAP 10.2 mEq/L (7-13); CALCIUM 7.8 mg/dL (8.5-10.1); CREATININE 1.02 mg/dL (0.55-1.02); EST CRCL DRUG DOSING (CG) 58.71 mL/min; POTASSIUM,K 4.2 mmol/L (3.5-5.1)
[2024-04-16] MEDS: Furosemide 40 MG Tab PO SCH (10:30)
[2024-04-16] MEDS: Spironolactone 25 MG Tab PO SCH (10:31)
[2024-04-16] MEDS: Lactulose Soln 10 GM/15 ML 30 ML UD Cup PO SCH (10:31)
[2024-04-16] MEDS: Multivitamin Tab PO SCH (10:31)
[2024-04-16 11:10] LABS: BODY FLUID TYPE PERITONEAL FLUID
[2024-04-16 11:11] LABS: GLUCOSE,BODY FLUID 94
[2024-04-16 12:36] LABS: PROTEIN,BODY FLUID < 2.0 mg/dL
[2024-04-16] MEDS: Albuterol/Ipratropium 3.0-0.5 MG/3 ML Neb Soln NEB PRN (13:23)
[2024-04-16 15:16] LABS: PERCENT FE SATURATION 64.4 % (20.0-50.0)
[2024-04-16 15:32] LABS: FOLIC ACID 9.5 ng/mL (8.6-58.9)
[2024-04-16] MEDS: Sodium Chloride 0.9% 10 ML Syringe FLUSH PRN (19:53)
[2024-04-16] MEDS: Ondansetron 4 MG/2 ML SDV IVPUSH PRN (19:53)
[2024-04-16] MEDS: Acetaminophen 325 MG Tab PO PRN (19:58)
[2024-04-16] MEDS: Melatonin 3 MG Tab PO PRN (20:04)
[2024-04-17 05:43] LABS: BASO'S 0 /cu mm; EO'S 0 /cu mm; LYMPH'S 21 /cu mm; MONO'S 34 /cu mm; OTHER 0 /cu mm; PMN'S 79 /cu mm
[2024-04-17 08:19] LABS: BASOPHILS PERCENT AUTO 0.1 % (0.0-1.0); EOSINOPHILS PERCENT AUTO 18.4 % (1.0-3.0); HEMATOCRIT 21.2 % (37.0-47.0); LYMPHOCYTES PERCENT AUTO 18.8 % (20.5-50.1); MEAN CORPUSCULAR VOLUME 112.2 fL (80-100); MONOCYTES PERCENT AUTO 13.9 % (2-8); NEUTROPHILS PERCENT AUTO 48.8 % (42.2-75.2); PLATELET COUNT,PLT 169 10^3/uL (150-450); RED BLOOD CELL COUNT 1.89 10^6/uL (4.2-5.4); WHITE BLOOD CELL COUNT,WBC 7.6 10^3/uL (5.0-10.0)
[2024-04-17 08:34] LABS: CALCIUM 7.8 mg/dL (8.5-10.1); CREATININE 1.08 mg/dL (0.55-1.02); EST CRCL DRUG DOSING (CG) 55.45 mL/min
[2024-04-17] MEDS: Pantoprazole 40 MG Tab.CR PO SCH (09:01)
[2024-04-18] MEDS ORDERED: Piperacillin/Tazobactam 4.5 GM in Sodium Chloride 0.9% 100 ML IV SCH (00:15)
[2024-04-18] MEDS: Acetaminophen/HYDROcodone 325-5 MG Tab PO PRN (00:36)
[2024-04-18] MEDS: Piperacillin/Tazobactam 4.5 GM in Sodium Chloride 0.9% 100 ML IV ONE (00:39)
[2024-04-18] MEDS: Piperacillin/Tazobactam 4.5 GM in Sodium Chloride 0.9% 100 ML IV SCH (04:19)
[2024-04-18] MEDS ORDERED: HYDROmorphone 0.5 MG/0.5 ML Syringe IVPUSH PRN (04:56)
[2024-04-18] MEDS: Meropenem 1 GM SDV IVPUSH SCH (05:33)
[2024-04-18 06:59] LABS: HEMATOCRIT 21.1 % (37.0-47.0); MEAN CORPUSCULAR HEMOGLOBIN 36.2 pg (27.0-34.0); MEAN CORPUSCULAR HGB CONC 32.2 g/dL (33.0-35.0); MEAN CORPUSCULAR VOLUME 112.2 fL (80-100); PLATELET COUNT,PLT 160 10^3/uL (150-450); RED BLOOD CELL COUNT 1.88 10^6/uL (4.2-5.4); WHITE BLOOD CELL COUNT,WBC 6.1 10^3/uL (5.0-10.0)
[2024-04-18 07:06] LABS: ANION GAP 11.7 mEq/L (7-13); CALCIUM 7.5 mg/dL (8.5-10.1); CREATININE 1.32 mg/dL (0.55-1.02); EST CRCL DRUG DOSING (CG) 45.37 mL/min; POTASSIUM,K 3.7 mmol/L (3.5-5.1)
[2024-04-18 07:08] LABS: BASOPHILS PERCENT AUTO 0.2 % (0.0-1.0); EOSINOPHILS PERCENT AUTO 24.8 % (1.0-3.0); HEMOGLOBIN 6.8 g/dL (12.0-16.0); LYMPHOCYTES PERCENT AUTO 21.6 % (20.5-50.1); MONOCYTES PERCENT AUTO 13.4 % (2-8)
[2024-04-18 07:43] LABS: EOSINOPHILS PERCENT MAN 27 % (1-3); LYMPHOCYTES PERCENT MAN 17 % (20-50); MONOCYTES PERCENT MAN 9 % (2-8); SEG NEUTROPHILS PERCENT MAN 47 % (42-75)
[2024-04-18] MEDS: Magnesium Sulfate/Water Premix 2 GM in Premix Bag 1 BAG IV ONE (08:16)
[2024-04-18] MEDS: Potassium Chloride 10 MEQ Tab.ER PO ONE (08:21)
[2024-04-18 08:30] LABS: INR 1.3 (0.9-1.2); PROTHROMBIN TIME 13.5 SEC (9.0-12.0)
[2024-04-18 13:44] VITALS: BP 124/67; PULSE 83
== END 2024-04-18 14:00 | DRG 441 ==
LOC: DL.ED 15:07 → DL.MS 20:14
PROVIDERS: ADMIT Internal Medicine; ATTEND Internal Medicine
PROC: 0W9G3ZX Drainage of Peritoneal Cavity, Percutaneous Approach, Diagnostic (ICD-10-PCS; principal; 2024-04-15)
PROC: 30233N1 Transfusion of Nonautologous Red Blood Cells into Peripheral Vein, Percutaneous Approach (ICD-10-PCS; 2024-04-15)
DX: K76.6 Portal hypertension (principal); A41.9 Sepsis, unspecified organism; K65.2 Spontaneous bacterial peritonitis; Z59.00 Homelessness unspecified; N17.9 Acute kidney failure, unspecified; K70.31 Alcoholic cirrhosis of liver with ascites; B18.2 Chronic viral hepatitis C; H54.7 Unspecified visual loss; R79.89 Other specified abnormal findings of blood chemistry; F15.10 Other stimulant abuse, uncomplicated; D53.9 Nutritional anemia, unspecified; Z88.6 Allergy status to analgesic agent; Z87.442 Personal history of urinary calculi; Z87.440 Personal history of urinary (tract) infections; Z87.81 Personal history of (healed) traumatic fracture; Z98.891 History of uterine scar from previous surgery; Z98.890 Other specified postprocedural states
CPT/HCPCS: 36415; 36430; 71046; 74177; 80048; 80053; 80305-QW; 80307; 81001; 82140; 82272; 82607; 82746; 82945; 83540; 83550; 83605; 83690; 83735; 83880; 84100; 84145; 84157; 84484; 85025; 85027; 85610; 85730; 86140; 86850; 86900; 86901; 86920; 86922; 87040; 87070; 87428-QW; 89051; 93005; 94640; 99223; 99232; 99233; 99239; A9270-GY; J0696; J2185; J2405; J2543; J3475; J3490; J7620-GY; P9016; P9047; Q9967

== ENCOUNTER 2024-12-21 10:42 | Emergency (ER) | payer MEDICAID ==
[2024-12-21] MEDS: Lidocaine 2% Viscous Solution 15 ML UD PO ONE (11:00)
[2024-12-21] MEDS: Ketorolac 30 MG/ML SDV IM ONE (11:00)
[2024-12-21] MEDS: Dexamethasone 4 MG/ML SDV IM ONE (11:01)
[2024-12-21 13:59] VITALS: BP 130/80; PULSE 65
== END 2024-12-21 11:12 | disposition home or self-care (01) ==
LOC: DL.ED 10:42
DX: K08.89 Other specified disorders of teeth and supporting structures (principal); N18.9 Chronic kidney disease, unspecified; Z88.6 Allergy status to analgesic agent
CPT/HCPCS: 96372; 99282; J1100; J1885; J3490; A9270-GY

== ENCOUNTER 2025-01-12 03:32 | Emergency (ER) | payer MEDICAID ==
[2025-01-12 04:21] LABS: BASOPHILS PERCENT AUTO 0.5 % (0.0-1.0); EOSINOPHILS PERCENT AUTO 5.7 % (1.0-3.0); LYMPHOCYTES PERCENT AUTO 44.1 % (20.5-50.1); MONOCYTES PERCENT AUTO 17.5 % (2-8); NEUTROPHILS PERCENT AUTO 32.2 % (42.2-75.2); PLATELET COUNT,PLT 138 10^3/uL (150-450); RED BLOOD CELL COUNT 2.83 10^6/uL (4.2-5.4); WHITE BLOOD CELL COUNT,WBC 4.2 10^3/uL (5.0-10.0)
[2025-01-12 04:44] LABS: ALANINE AMINOTRANSFERASE,ALT 43.0 U/L (14-59); ASPARTATE AMNIOTRANSFERASE,AST 65.0 U/L (15-37); BILIRUBIN TOTAL 0.7 mg/dL (0.2-1.0); BLOOD UREA NITROGEN,BUN 26.0 mg/dL (7-18); CARBON DIOXIDE,CO2 21.0 mmol/L (21-32); CHLORIDE,CL 113.0 mmol/L (98-107); CREATININE 0.95 mg/dL (0.55-1.02); EST CRCL DRUG DOSING (CG) 62.33 mL/min; GLUCOSE RANDOM 105.0 mg/dL (70-99); POTASSIUM,K 4.0 mmol/L (3.5-5.1); PROTEIN TOTAL,TP 4.7 g/dL (6.4-8.2); SODIUM,NA 141.0 mmol/L (136-145)
[2025-01-12 04:47] LABS: A/G RATIO 0.38; ESTIMATED GFR 72.0 mL/min (>=60)
[2025-01-12 06:30] VITALS: BP 128/60; PULSE 99
== END 2025-01-12 06:25 | disposition home or self-care (01) ==
LOC: DL.ED 03:32
DX: K70.31 Alcoholic cirrhosis of liver with ascites (principal); N18.9 Chronic kidney disease, unspecified; Z88.6 Allergy status to analgesic agent; Z87.891 Personal history of nicotine dependence
CPT/HCPCS: 36415; 80053; 83735; 85025; 99284; 99285